=== PATIENT | female | born 1955 | race Caucasian/White ===

== ENCOUNTER 2020-12-23 12:37 | Outpatient (CLI) | payer MEDICARE, BC | END 2020-12-23 12:38 | disposition home or self-care (01) | LOC: CSHMAMMO 12:37 | PROVIDERS: ATTEND Internal Medicine | DX: N64.89 Other specified disorders of breast (principal); Q83.8 Other congenital malformations of breast | CPT/HCPCS: 76642; 77065; G0279 ==

== ENCOUNTER 2021-12-29 13:33 | Outpatient (CLI) | payer MEDICARE, BC | END 2021-12-29 13:34 | disposition home or self-care (01) | LOC: CSHMAMMO 13:33 | PROVIDERS: ATTEND Internal Medicine Endocrinology, Diabetes & Metabolism | DX: Z12.31 Encounter for screening mammogram for malignant neoplasm of breast (principal); M85.851 Other specified disorders of bone density and structure, right thigh; M85.852 Other specified disorders of bone density and structure, left thigh; M81.0 Age-related osteoporosis without current pathological fracture; Z80.3 Family history of malignant neoplasm of breast; Z91.89 Other specified personal risk factors, not elsewhere classified; Z98.890 Other specified postprocedural states | CPT/HCPCS: 77063; 77067; 77080 ==

== ENCOUNTER 2024-04-10 14:22 | Outpatient (CLI) | payer MEDICARE, BC | END 2024-04-10 14:23 | disposition home or self-care (01) | LOC: CSHMAMMO 14:22 | PROVIDERS: ATTEND Internal Medicine Rheumatology | DX: M81.0 Age-related osteoporosis without current pathological fracture (principal); M46.1 Sacroiliitis, not elsewhere classified; L40.59 Other psoriatic arthropathy; M41.20 Other idiopathic scoliosis, site unspecified; M54.32 Sciatica, left side; M85.89 Other specified disorders of bone density and structure, multiple sites | CPT/HCPCS: 77080 ==